=== PATIENT | female | born 1980 | race Caucasian/White ===

== ENCOUNTER → 2023-08-25 11:07 | Outpatient (REF) | payer BC, SELFPAY | LOC: PAVMRI 11:07 | PROVIDERS: ATTENDING PHYSICIAN Pain Medicine Interventional Pain Medicine; FAMILY PHYSICIAN Physician Assistant Medical | DX: M54.14 Radiculopathy, thoracic region (principal) | CPT/HCPCS: 72146 ==

== ENCOUNTER 2023-10-21 06:19 | Day surgery (SDC) | payer BC, SELFPAY ==
[2023-10-21 12:58] VITALS: BMI 45.4
[2023-10-21 13:01] VITALS: BP 149/79
[2023-10-21 14:20] VITALS: BP 131/76
[2023-10-21 14:30] VITALS: BP 131/80
[2023-10-21 14:45] VITALS: BP 120/68
== END 2023-10-21 15:05 | disposition home or self-care (01) ==
LOC: GI 06:19
PROVIDERS: ATTENDING PHYSICIAN Internal Medicine Gastroenterology
DX: R19.7 Diarrhea, unspecified (principal); K58.0 Irritable bowel syndrome with diarrhea; K64.0 First degree hemorrhoids; K63.89 Other specified diseases of intestine; D12.2 Benign neoplasm of ascending colon; D12.3 Benign neoplasm of transverse colon; D12.4 Benign neoplasm of descending colon; D12.5 Benign neoplasm of sigmoid colon; K62.1 Rectal polyp; Z86.010 Personal history of colon polyps
CPT/HCPCS: 45385; 45380; 88305

== ENCOUNTER → 2024-06-03 14:11 | Outpatient (REF) | payer BC, SELFPAY | LOC: WDC 14:11 | PROVIDERS: ATTENDING PHYSICIAN Obstetrics & Gynecology Gynecology; FAMILY PHYSICIAN Physician Assistant Medical | DX: Z12.31 Encounter for screening mammogram for malignant neoplasm of breast (principal) | CPT/HCPCS: 77063; 77067 ==

== ENCOUNTER → 2025-03-31 13:59 | Outpatient (REF) | payer BC, SELFPAY | LOC: REG 13:59 | PROVIDERS: ATTENDING PHYSICIAN Physician Assistant | DX: M25.50 Pain in unspecified joint (principal); M54.50 Low back pain, unspecified | CPT/HCPCS: 72202 ==